=== PATIENT | male | born 1990 | race Caucasian/White ===

== ENCOUNTER 2019-10-23 12:04 | Emergency (ER) | payer OTHER ==
[~2019-10-23] VITALS: Ht 180.3 cm; Wt 97.5 kg
[2019-10-23] MEDS ORDERED: MELATONIN5 MG SUBLING (12:13)
[2019-10-23 13:03] LABS: ABSOLUTE EOSINOPHILS 0.3 thou/uL (0.0-0.7); ABSOLUTE LYMPHOCYTES 1.5 thou/uL (0.8-5.3); ABSOLUTE MONOCYTES 0.5 thou/uL (0.0-1.2); ABSOLUTE NEUTROPHILS 2.9 thou/uL (1.6-8.1); BASOPHILS 0.7 %; HEMATOCRIT 44.3 % (42.0-52.0); HEMOGLOBIN 15.6 gm/dL (14.0-18.0); LYMPHOCYTES 29.2 %; MCH 31.2 pg (26.0-34.0); MCHC 35.2 g/dL (28.0-37.0); MCV 88.6 fL (80.0-100.0); MPV 7.5 fl. (7.2-11.1); NUCLEATED RBCS 0 /100WBC; PLATELET COUNT* 273 thou/uL (150-400); POLYS 56.1 %; RDW-CV 13.8 % (10.5-14.5); WBC 5.2 thou/uL (4.0-11.0)
[2019-10-23 13:12] LABS: CALCIUM 9.1 mg/dL (8.5-10.1); POTASSIUM 4.1 mmol/L (3.5-5.1)
[2019-10-23 13:15] LABS: ALBUMIN 4.1 g/dL (3.4-5.0); TOTAL PROTEIN 7.9 g/dL (6.4-8.2)
[2019-10-23] MEDS ORDERED: PEPCID AC20 MG PO (13:19)
[2019-10-23] MEDS ORDERED: PEPCID20 MG PO (13:19)
[2019-10-23 13:37] VITALS: BP 130/60
== END 2019-10-23 13:37 | disposition home or self-care (01) ==
LOC: M.ERS 12:04
PROVIDERS: Nurse Practitioner
DX: K62.5 Hemorrhage of anus and rectum (principal); R10.13 Epigastric pain; Z90.49 Acquired absence of other specified parts of digestive tract